=== PATIENT | female | born 1985 | race Caucasian/White ===

== ENCOUNTER → 2019-11-05 | Outpatient (CLI) | payer BC | END | disposition home or self-care (01) | LOC: CVU 12:42 | PROVIDERS: ATTEND Family Medicine | DX: G60.0 Hereditary motor and sensory neuropathy (principal); I77.1 Stricture of artery; M62.58 Muscle wasting and atrophy, not elsewhere classified, other site | CPT/HCPCS: 93922; 93925; 93970 ==